=== PATIENT | female | born 1990 | race African-American/Black ===

== ENCOUNTER 2018-04-18 21:11 | Emergency (ER) | payer SELFPAY ==
[2018-04-18 22:37] LABS: ABSOLUTE BASOPHIL COUNT 0 /CUMM (0.0-0.2); ABSOLUTE EOSINOPHIL COUNT 0.1 /CUMM (0.0-0.7); ABSOLUTE GRANULOCYTE CT 4.7 /CUMM (1.4-6.5); ABSOLUTE LYMPH COUNT 1.2 /CUMM (1.2-3.4); ABSOLUTE MONOCYTE COUNT 0.5 /CUMM (0.10-0.60); BASOPHIL % 0.3 % (0.0-2.0); EOSINOPHIL % 1.2 % (0-5); GRANULOCYTE % 72.4 % (42.2-75.2); HEMATOCRIT 37.8 % (37-47); MEAN CORPUSCULAR HGB 28.1 PG (27.0-31.0); MEAN CORPUSCULAR HGB CONC 33.5 G/DL (33.0-37.0); MEAN PLATELET VOLUME 9.5 FL (7.4-10.4); PLATELET COUNT 287 /CUMM (130-400); RBC DISTRIBUTION WIDTH 15.1 % (11.5-14.5); WHITE BLOOD CELL COUNT 6.4 /CUMM (4.8-10.8)
--- NOTE | 2018-04-18 23:05 | ED GENERAL ADULT ---
History of Present Illness General Chief Complaint: General Adult Stated Complaint: "SICK, VOMITING, BLACK STOOL" PER PT Source: patient Exam Limitations: no limitations Vital Signs & Intake/Output Vital Signs & Intake/Output Vital Signs Date Time Temp Pulse Resp B/P B/P Pulse O2 O2 Flow FiO2 Mean Ox Delivery Rate 04/18 2116 99.9 101 16 117/85 97 Room Air ED Intake and Output 04/19 0000 04/18 1200 Intake Total 1000 Output Total Balance 1000 Intake, IV 1000 Patient 211 lb Weight Weight Reported by Patient Measurement Method Allergies Coded Allergies: No Known Allergies (04/18/18) Reconcile Medications Omeprazole 20 MG TABLET.DR 1 TAB PO DAILY GASTRITIS Ondansetron (Zofran Odt) 4 MG TAB.RAPDIS 1 TAB SL TID PRN NAUSEA Triage Note: PT TO ED WITH C/O 3 DAYS OF ABD PAIN, CHEST PAIN, N/V. REPORTS CONSTIPATION AND DIARRHEA. DENIES URINARY SYMPTOMS. STATES EMESIS IS BLACK. Triage Nurses Notes Reviewed? yes Onset: Abrupt Duration: day(s): (3), constant, continues in ED, getting worse Timing: single episode today Injury Environment: home Severity: moderate, severe Severity Numbers: 8 No Modifying Factors: none Associated Symptoms: chest pain LMP (ages 10-50): unknown : No Patient currently breastfeeds: No HPI: 28-year-old female with no past medical history presented for evaluation of abdominal pain nausea vomiting diarrhea. Patient reports that symptoms started 3 days ago and been persistent. The pain is located in the epigastric area and does not radiate. She discussed pain is a sharp and burning pain. She states that it is much worse with eating and drinking. She reports that she has had some black diarrhea. No gross blood no hematemesis. She reports that she has not been able tolerate much food or fluids. No lower extremity edema or hemoptysis. She does report intermittent shortness of breath that feels like her asthma. Currently she is not feeling short of breath. She denies any drug or alcohol use. She is not taking any medicine for this. She never had this before. No fevers no urinary symptoms no vaginal discharge or bleeding. (Cruz Negrete) Past History Travel History Traveled to [place] past 21 day No Medical History Any Pertinent Medical History? see below for history Surgical History Surgical History: non-contributory Psychosocial History What is your primary language Sami Tobacco Use: Never used Family History Hx Contributory? No (Cruz Negrete) Review of Systems Review of Systems Constitutional: Reports: no symptoms. EENTM: Reports: no symptoms. Respiratory: Reports: no symptoms. Cardiovascular: Reports: chest pain. GI: Reports: see HPI, abdominal pain, diarrhea, nausea, vomiting. Genitourinary: Reports: no symptoms. Musculoskeletal: Reports: no symptoms. Skin: Reports: no symptoms. Neurological/Psychological: Reports: no symptoms. Hematologic/Endocrine: Reports: no symptoms. Immunologic/Allergic: Reports: no symptoms. All Other Systems: Reviewed and Negative (Cruz Negrete) Physical Exam Physical Exam General Appearance: well developed/nourished, no apparent distress, alert, awake Head: atraumatic, normal appearance Eyes: Bilateral: normal appearance, PERRL, EOMI. Ears, Nose, Throat: normal pharynx, normal ENT inspection, hearing grossly normal Neck: normal inspection, supple, full range of motion Respiratory: normal breath sounds, chest non-tender, no respiratory distress, lungs clear Cardiovascular: regular rate/rhythm, normal peripheral pulses Peripheral Pulses: 2+ radial (R), 2+ radial (L) Gastrointestinal: normal bowel sounds, soft, no organomegaly, tenderness ( EPIGASTRIC) Rectal: normal rectal tone, heme negative stool, dARK. bROWN STOOL HEME-NEGATIVE Back: normal inspection, normal range of motion, no vertebral tenderness, RIGHT- SIDED LUMBAR PARASPINAL MUSCLES TENDER TO PALPATION NO MIDLINE TENDERNESS Extremities: normal inspection, normal range of motion, no edema Neurologic/Psych: no motor/sensory deficits, awake, alert, oriented x 3 Skin: intact, normal color, warm/dry Lymphatic: no anterior cervical aren Core Measures ACS in differential dx? No CVA/TIA Diagnosis: No Sepsis Present: No Sepsis Focused Exam Completed? No (Cruz Negrete) Progress Differential Diagnoses I considered the following diagnoses in my evaluation of the patient: [Gastritis , peptic ulcer disease, GI bleed, pancreatitis, cholecystitis] Plan of Care: Orders Procedure Date/time Status Add-on Test (ER Only) 04/18 2355 Active Add-on Test (ER Only) 04/18 2350 Active HUMAN BETA HCG SCREEN 04/18 2227 Complete TROPONIN LEVEL 04/18 2222 Complete LIPASE 04/18 2222 Complete LACTIC ACID 04/18 2222 Complete D-DIMER 04/18 2222 Complete COMPREHENSIVE METABOLIC PANEL 04/18 2222 Complete CBC WITHOUT DIFFERENTIAL 04/18 2222 Complete URINALYSIS 04/18 2221 Complete EKG 04/18 2117 Active Current Medications Sig/Jefe Start time Last Medication Dose Stop Time Status Admin Sodium Chloride 1,000 ML BOLUS ONE 04/18 2300 CAN (Normal Saline 0.9%) 04/18 2359 Laboratory Tests 04/19/18 0142: Urinalysis LIGHT H, Urine Color YEL, Urine Clarity CLEAR, Urine pH 6.5, Ur Specific [place] <= 1.005, Urine Protein NEG, Urine Ketones >=80, Urine Nitrite NEG, Urine Bilirubin NEG, Urine Urobilinogen 1.0, Ur Leukocyte Esterase NEG, Ur Microscopic SEDIMENT EXAMINED, Urine RBC 5-10 H, Urine Bacteria RARE H, Urine Hemoglobin MOD H, Urine Glucose NEG 04/19/18 0122: Lactic Acid Cancelled 04/18/182226: Anion Gap 15, Estimated GFR > 60, BUN/Creatinine Ratio 7.5, Glucose 104 H, Lactic Acid 1.2, Calcium 9.6, Total Bilirubin 0.7, AST 18, ALT 23, Alkaline Phosphatase 64, Troponin I < 0.01, Total Protein 7.5, Albumin 4.2, Globulin 3.3, Albumin/Globulin Ratio 1.3, Lipase 74, Total Beta HCG NEGATIVE, D-Dimer High Sensitivty 215, CBC w Diff NO MAN DIFF REQ, RBC 4.50, MCV 84.0, MCH 28.1, MCHC 33.5, RDW 15.1 H, MPV 9.5, Gran % 72.4, Lymphocytes % 18.0 L, Monocytes % 8.1, Eosinophils % 1.2, Basophils % 0.3, Absolute Granulocytes 4.7, Absolute Lymphocytes 1.2, Absolute Monocytes 0.5, Absolute Eosinophils 0.1, Absolute Basophils 0 Patient is here with epigastric abdominal pain nausea vomiting and diarrhea. She states her diarrhea is black. Rectal exam is negative for occult blood. No gross blood and no black stool. She does have epigastric abdominal pain. Vital signs are stable. IV fluids Zofran IV Tylenol and GI cocktail ordered. Blood work is unremarkable. Urinalysis is pending. Patient is feeling better BEING medicated. CT scan is still pending. PT SIOGNED OUT TO DR SNYDER PENDING CT SCAN AND CHEST X-RAY. Initial ED EKG: normal sinus rhythm, no ST T wave changes Hand-Off Endorsed To: Juwan Snyder MD Endorsed Time: 43 Pending: CT, Xray (Cruz Negrete) Differential Diagnoses I considered the following diagnoses in my evaluation of the patient: Diagnostic Imaging: Viewed by Me: Radiology Read, CT Scan. Discussed w/RAD: Radiology Read, CT Scan. Radiology Impression: No evidence for acute abdominal or pelvic inflammatory or infectious processes. CXR Impression: no acute abnormality, no infiltrates (Juwan Snyder MD) Departure Departure Condition: Stable Clinical Impression Primary Impression: Epigastric pain Referrals: Mc Anna MD Patient Has No Primary Care Dr (PCP/Family) Additional Instructions: Rest and drink plenty of fluids. Avoid NSAIDs greasy fatty spicy foods. Take omeprazole once daily. Zofran for nausea. 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 MONITOR symptoms return with any concerns. Departure Forms: Customer Survey General Discharge Information Prescriptions: Current Visit Scripts Omeprazole 1 TAB PO DAILY #30 TAB Ondansetron (Zofran Odt) 1 TAB SL TID PRN NAUSEA #10 TAB (Cruz Negrete) Departure Time of Disposition: 219 Disposition: HOME OR SELF CARE PA/RUBBLE PLACER Co-Sign Statement Statement: ED Attending supervision documentation- x I saw and evaluated the patient. I have also reviewed all the pertinent lab results and diagnostic results. I agree with the findings and the plan of care as documented in the PA's/RUBBLE PLACER's documentation. [] I have reviewed the ED Record and agree with the PA's/RUBBLE PLACER's documentation. [] Additions or exceptions (if any) to the PAs/RUBBLE PLACER's note and plan are summarized below: [] (Juwan Snyder MD) Critical Care Note Critical Care Note Critical Care Time: non-applicable (Cruz Negrete)
[2018-04-19] MEDS ORDERED: ZOFRAN ODT4 M1 SL (00:47)
[2018-04-19] MEDS ORDERED: OMEPRAZOLE20 M3 PO (00:47)
--- NOTE | 2018-04-19 01:13 | RADIOLOGY REPORT ---
EXAMINATION: CHEST 2 VIEWS CLINICAL INFORMATION: Chest pain. Shortness of breath. COMPARISON: None. TECHNIQUE: PA and lateral views of the chest were obtained. FINDINGS: The cardiac silhouette is not enlarged. The mediastinal and hilar contours are unremarkable. There are neither pleural effusions nor pneumothoraces. There are no consolidations. The osseous structures are unremarkable. IMPRESSION: No evidence for acute disease.
--- NOTE | 2018-04-19 01:15 | CT SCAN REPORT ---
EXAMINATION: CT ABDOMEN AND PELVIS WITH CONTRAST CLINICAL INFORMATION: Diffuse abdominal pain. COMPARISON: None. TECHNIQUE: Contiguous axial thin section helical images of the abdomen and pelvis were performed following the administration of 95 mL of intravenous Optiray 320. The data set was reformatted in the coronal and sagittal planes and reviewed on an independent workstation. DLP: 615 mGy-cm. FINDINGS: The visualized lung bases are clear. The visualized portions of the heart are unremarkable. The liver is of normal size and attenuation without focal lesions nor intrahepatic biliary ductal dilation. A normal gallbladder is identified. There is no wall thickening or discernible pericholecystic fluid. The spleen, pancreas, adrenal glands are unremarkable. Both kidneys are of normal size and attenuation without hydronephrosis or nephrolithiasis. Following the administration of IV contrast, prompt symmetric nephrograms are displayed. There is no abdominal free fluid. There is neither mesenteric nor retroperitoneal lymphadenopathy. Normal unopacified loops of small and large bowel are identified. The appendix is not identified; however, no inflammatory changes are demonstrable within the right lower quadrant. There is no pelvic free fluid. An IUD is in appropriate position. The urinary bladder is unremarkable. There is neither pelvic nor inguinal lymphadenopathy. Bone windows: Neither sclerotic nor lytic bone lesions are identified. IMPRESSION: No evidence for acute abdominal or pelvic inflammatory or infectious processes.
[2018-04-19 02:32] VITALS: BP 112/68
== END 2018-04-19 02:33 ==
LOC: ERH 21:11
PROVIDERS: Physician Assistant Medical
DX: R10.13 Epigastric pain (principal); R11.2 Nausea with vomiting, unspecified; R19.7 Diarrhea, unspecified
CPT/HCPCS: 71046; 74177; 81001; 81025; 93005; 93010; 96374; 96375; J0131; J2405; J2765